=== PATIENT | male | born 1960 | race African-American/Black ===

== ENCOUNTER 2016-09-14 01:06 | Emergency (ER) | payer MEDICAID ==
[2016-09-14] VITALS (31 sets, daily range): BP systolic 0–104; BP diastolic 0–68
[~2016-09-14] VITALS: Ht 177.8 cm; Wt 68.0 kg
[2016-09-14 02:56] LABS: MEAN CORPUSCULAR HEMOGLOBIN 28.7 PG (27.0-31.0); MEAN CORPUSCULAR HGB CONC 28.8 G/DL (32.0-36.0); MEAN CORPUSCULAR VOLUME 100 FL (80-99); MEAN PLATELET VOLUME 9.1 FL (6.5-10.1); PLATELET COUNT 29 K/UL (150-450); RED CELL DISTRIBUTION WIDTH 16.3 % (11.6-14.8)
[2016-09-14 03:13] LABS: ALANINE AMINOTRANSFERASE 6 U/L (3-41); ALBUMIN/GLOBULIN RATIO 1.9 (1.0-2.7); ANION GAP 25 (5-15); ASPARTATE AMINO TRANSFERASE 20 U/L (5-40); CALCIUM 9.3 mg/dL (8.6-10.2); CARBON DIOXIDE 19 mEQ/L (20-30); CHLORIDE 97 mEQ/L (98-107); GLOMERULAR FILTRATION RATE > 60 mL/min (>60); HEMOLYSIS 5; LIPASE 25 U/L (< 60); POTASSIUM 5.1 mEQ/L (3.4-4.9); SODIUM 141 mEQ/L (135-145); TOTAL PROTEIN 5.8 g/dL (6.6-8.7)
[2016-09-14 03:18] LABS: TROPONIN I < 0.30 ng/mL (<=0.30)
[2016-09-14 03:35] LABS: WHITE BLOOD COUNT 94.6 K/UL (4.8-10.8)
[2016-09-14 04:05] LABS: BAND NEUTROPHILS % (MANUAL) 6 % (0-8); BASOPHILS % (MANUAL) 1 % (0-2); EOSINOPHILS % (MANUAL) 0 % (0-3); LYMPHOCYTES % (MANUAL) 86 % (20-45); NEUTROPHILS % (MANUAL) 3 % (45-75); PLATELET ESTIMATE DECREASED; TOTAL CELLS COUNTED 100
[2016-09-14 04:06] LABS: ANISOCYTOSIS 2+; OVALOCYTES 2+; PLATELET MORPHOLOGY NORMAL
[2016-09-14 04:07] LABS: POIKILOCYTOSIS 1+; TEAR DROP CELLS 1+
[2016-09-14 04:10] LABS: INR 1.1 (0.9-1.1); PROTHROMBIN TIME 11.7 SEC (9.30-11.50)
[2016-09-14] MEDS ORDERED: Morphine Sulfate 4mg/ml Inj IVP ONE ×2 (05:30→06:30)
[2016-09-14] MEDS ORDERED: fentaNYL 100 mcg/2 mL IV ONE (05:45)
[2016-09-14] MEDS ORDERED: Solu-MEDROL 125mg Inj ONE (06:26)
[2016-09-14] MEDS ORDERED: DiphenhydrAMINE 50mg/ml Inj ONE (06:26)
[2016-09-14] MEDS ORDERED: DiphenhydrAMINE 50mg/ml Inj IVP ONE (06:30)
[2016-09-14] MEDS ORDERED: Solu-MEDROL 125mg Inj IVP ONE (06:30)
--- NOTE | 2016-09-14 07:44 | Emergency Room Report ---
History of Present Illness General Chief Complaint: General Complaint Source: Patient Present Illness HPI 56-year-old male presents to ED for evaluation. Patient states that since last night he's been feeling weak, dizzy. States he had some abdominal pain and noted some diarrhea. Pain as cramping, sharp, 8/10. Nonradiating. No other aggravating relieving factors. Denies chest pain or shortness of breath. States that he was treated in the past for lymphoma but is currently not being treated. Currently does not have a PMD. No other aggravating relieving factors. Denies any other associated symptoms Allergies: Coded Allergies: No Known Allergies (Unverified , 09/14/16) Patient History Past Medical History: none Past Surgical History: none Pertinent Family History: none Social History: Denies: alcohol use, drug use, smoking Immunizations: UTD Reviewed Nursing Documentation: PMH: Agreed, PSxH: Agreed Review of Systems All Other Systems: negative except mentioned in HPI Physical Exam Vital Signs Date Time Temp Pulse Resp B/P Pulse Ox O2 Delivery O2 Flow Rate FiO2 09/14/16 01:08 98.1 104 18 104/68 100 Room Air Sp02 EP Interpretation: reviewed, normal General Appearance: no apparent distress, alert, GCS 15, non-toxic Head: normocephalic, atraumatic Eyes: bilateral eye PERRL, bilateral eye normal inspection ENT: hearing grossly normal, normal pharynx, no angioedema, normal voice Neck: full range of motion, supple/symm/no masses Respiratory: chest non-tender, lungs clear, normal breath sounds, speaking full sentences Cardiovascular #1: regular rate, rhythm, no edema Cardiovascular #2: 2+ carotid (R), 2+ carotid (L), 2+ radial (R), 2+ radial (L) , 2+ dorsalis pedis (R), 2+ dorsalis pedis (L) Gastrointestinal: normal bowel sounds, soft, no guarding, no rebound, distended Rectal: deferred Genitourinary: normal inspection, no CVA tenderness Musculoskeletal: back normal, gait/station normal, normal range of motion, non- tender Neurologic: alert, oriented x3, responsive, motor strength/tone normal, sensory intact, speech normal Psychiatric: judgement/insight normal, memory normal, mood/affect normal, no suicidal/homicidal ideation Reflexes: 3+ bicep (R), 3+ bicep (L), 3+ tricep (R), 3+ tricep (L), 3+ knee (R) , 3+ knee (L) Skin: normal color, no rash, warm/dry, well hydrated Lymphatic: no adenopathy Medical Decision Making Diagnostic Impression: Primary Impression: Leukocytosis Qualified Codes: D72.829 - Elevated white blood cell count, unspecified Additional Impressions: Anemia Qualified Codes: D64.9 - Anemia, unspecified Splenomegaly ER Course Hospital Course 56-year-old male presents ED complaining of dizziness and weakness, abdominal pain and distention. History of lymphoma Differential diagnoses include: dehydration, ACS/WI, SBO Clinical course Patient placed on stretcher. classroom monitor. After initial history and physical I ordered labs, IV fluids, EKG, CXR, CT Labs - marked leukocytosis, Hb/Hct 6.6/22.9. K 5.1. CXR unremarkable EKG - sinus tachy CT abdomen and pelvis - splenomgaly, marked shift in organs. no SBO PRBCs ordered. IV fluids ordered. Patient became hypotensive but responsive to IV fluids and blood Case discussed with Dr. Mckeon and he agreed to accept the patient to his service for further care and support I feel this is a highly complex case requiring extensive working including EKG/ Rhythm strip, Xray/CT/US, Blood/urine lab work, repeat exams while in ED, and administration of strong opiates/narcotics for pain control, admission to hospital or close patient follow up. Diagnosis - leukocytosis, anemia, splenomgaly Patient admitted to [facility] in serious condition Labs Test 09/14/16 02:50 White Blood Count 94.6 K/UL (4.8-10.8) Red Blood Count 2.30 M/UL (4.70-6.10) Hemoglobin 6.6 G/DL (14.2-18.0) Hematocrit 22.9 % (42.0-52.0) Mean Corpuscular Volume 100 FL (80-99) Mean Corpuscular Hemoglobin 28.7 PG (27.0-31.0) Mean Corpuscular Hemoglobin Concent 28.8 G/DL (32.0-36.0) Red Cell Distribution Width 16.3 % (11.6-14.8) Platelet Count 29 K/UL (150-450) Mean Platelet Volume 9.1 FL (6.5-10.1) Neutrophils (%) (Auto) % (45.0-75.0) Lymphocytes (%) (Auto) % (20.0-45.0) Monocytes (%) (Auto) % (1.0-10.0) Eosinophils (%) (Auto) % (0.0-3.0) Basophils (%) (Auto) % (0.0-2.0) Differential Total Cells Counted 100 Neutrophils % (Manual) 3 % (45-75) Lymphocytes % (Manual) 86 % (20-45) Monocytes % (Manual) 4 % (1-10) Eosinophils % (Manual) 0 % (0-3) Basophils % (Manual) 1 % (0-2) Band Neutrophils 6 % (0-8) Platelet Estimate Decreased Platelet Morphology Normal Poikilocytosis 1+ Anisocytosis 2+ Tear Drop Cells 1+ Ovalocytes 2+ Prothrombin Time 11.7 SEC (9.30-11.50) Prothromb Time International Ratio 1.1 (0.9-1.1) Activated Partial Thromboplast Time 28 SEC (23-33) Sodium Level 141 mEQ/L (135-145) Potassium Level 5.1 mEQ/L (3.4-4.9) Chloride Level 97 mEQ/L (98-107) Carbon Dioxide Level 19 mEQ/L (20-30) Anion Gap 25 (5-15) Blood Urea Nitrogen 20 mg/dL (7-23) Creatinine 1.0 mg/dL (0.7-1.2) Estimat Glomerular Filtration Rate > 60 mL/min (>60) Glucose Level 161 mg/dL (74-106) Calcium Level 9.3 mg/dL (8.6-10.2) Total Bilirubin 0.4 mg/dL (0.0-1.2) Aspartate Amino Transf (AST/SGOT) 20 U/L (5-40) Alanine Aminotransferase (ALT/SGPT) 6 U/L (3-41) Alkaline Phosphatase 93 U/L (40-129) Total Creatine Kinase 120 U/L (38-174) Troponin I < 0.30 ng/mL (<=0.30) Total Protein 5.8 g/dL (6.6-8.7) Albumin 3.8 g/dL (3.5-5.2) Globulin 2.0 g/dL Albumin/Globulin Ratio 1.9 (1.0-2.7) Lipase 25 U/L (< 60) EKG Diagnostic Results Rate: tachycardiac Rhythm: NSR ST Segments: no acute changes ASA given to the pt in ED: No Rhythm Strip Diag. Results EP Interpretation: yes Rhythm: NSR, no PVC's, no ectopy Chest X-Ray Diagnostic Results EP Interpretation: Yes Findings: no consolidation, no effusion, no pneumothorax, no acute cardiopulmonary disease Number of Views: 1 CT/MRI/US Diagnostic Results CT/MRI/US Diagnostic Results : Imaging Test Ordered: CT A/P Impression massive splenomegaly. mass effect with shift of stomach, bowel. + free fluid. no SBO Last Vital Signs Date Time Temp Pulse Resp B/P Pulse Ox O2 Delivery O2 Flow Rate FiO2 09/14/16 01:20 98.1 104 18 104/68 100 Room Air Status: improved Disposition: ADMITTED INPATIENT Condition: Serious Referrals: NOT CHOSEN [facility]/,REFERRING (PCP) MARIAH VALENTE M.D. Sep 14, 2016 07:44
[2016-09-14 07:58] LABS: CKMB 1.6 ng/mL (< 6.7)
[2016-09-14 08:08] LABS: APPEARANCE,URINE SLIGHTLY CLOUDY; KETONES,URINE NEGATIVE (NEGATIVE); LEUKOCYTE ESTERASE ,URINE NEGATIVE (NEGATIVE); NITRITE,URINE NEGATIVE (NEGATIVE); PH,URINE 6 (4.5-8.0); PROTEIN,URINE 3+ (NEGATIVE); UROBILINOGEN,URINE NORMAL MG/DL (0.0-1.0)
[2016-09-14 08:19] LABS: SQUAMOUS EPITHELIAL CELL,UR OCCASIONAL /LPF (NONE/OCC); WBC,URINE 0-2 /HPF (0 - 0)
[2016-09-14 08:20] LABS: AMORPHOUS SEDIMENT,UR FEW /LPF; BACTERIA,URINE OCCASIONAL /HPF
--- NOTE | 2016-09-14 09:11 | Emergency Room Report ---
History of Present Illness General Chief Complaint: General Complaint Source: Patient Present Illness Allergies: Coded Allergies: No Known Allergies (Unverified , 09/14/16) Physical Exam Vital Signs Date Time Temp Pulse Resp B/P Pulse Ox O2 Delivery O2 Flow Rate FiO2 09/14/16 01:08 98.1 104 18 104/68 100 Room Air Procedures Critical Care Time Critical Care Time 30 minutes of CC time for this patient See Code Blue note for interventions CC time also included review of labs, discussion with admitting hospitalist Dr Schuler CPR/Code Blue CPR/Code Blue Narrative Alerted by RN that patient became unresponsive at 845am Patient bradycardic 45, hypotensive 97/60 Apneic breathing? No palpable pulse CPR started by me immediately Pacer pads placed Patient received IV calcium After 1 round of CPR, palpable pulse, cardiac contractility on bedside sono at 846am Sinus tachycardia Bradycardic to 40s Received 0.4mg atropine with improvement I then emergently intubated patient without complication and connected to ventilator Reviewed labs - noted HyperK and low bicarb. gave 1 amp bicarb Informed admitting Dr Schuler at 909am Intubation Intubation : Consent: Emergent Intubation Method: orotracheal Tube Size (cm): 7.5 Breath Sounds after Intubation: equal Intubation Complications: no complications Post Intubation Xray: Yes Attempts: One Patient Tolerated: Well Complications: None Medical Decision Making Diagnostic Impression: Primary Impression: Leukocytosis Qualified Codes: D72.829 - Elevated white blood cell count, unspecified Additional Impressions: Anemia Qualified Codes: D64.9 - Anemia, unspecified Splenomegaly Cardiac arrest Acute respiratory failure Hyperkalemia Last Vital Signs Date Time Temp Pulse Resp B/P Pulse Ox O2 Delivery O2 Flow Rate FiO2 09/14/16 01:20 98.1 104 18 104/68 100 Room Air Disposition: ADMITTED INPATIENT Condition: Serious Referrals: NOT CHOSEN [facility]/,REFERRING (PCP) DEMETRIUS SILVEIRA M.D. Sep 14, 2016 09:10
[2016-09-14] MEDS ORDERED: Atropine Sulfate 0.4mg/ml inj IVP ONE (09:15)
[2016-09-14] MEDS ORDERED: Sodium Bicarbonate 8.4% 50ml Inj IV ONE ×2 (09:15→10:15)
[2016-09-14] MEDS ORDERED: EPINEPHrine 1mg/10ml carp IV ONE ×2 (09:15→11:16)
[2016-09-14] MEDS ORDERED: Vancomycin 1.5gm/D5W 300ml 300 ML IVPB ONE ×2 (09:30→11:45)
[2016-09-14] MEDS ORDERED: Levophed 4mg/4mL Inj IV ONE (09:51)
[2016-09-14] MEDS ORDERED: metroNIDAZOLE 500mg 100 ML IVPB SCH (10:00)
[2016-09-14] MEDS ORDERED: Sodium Bicarbonate 150 ML in D5W 1000ml 1,000 ML IV SCH (10:15)
--- NOTE | 2016-09-14 10:15 | Emergency Room Report ---
History of Present Illness General Chief Complaint: General Complaint Source: Patient Present Illness Allergies: Coded Allergies: No Known Allergies (Unverified , 09/14/16) Physical Exam Vital Signs Date Time Temp Pulse Resp B/P Pulse Ox O2 Delivery O2 Flow Rate FiO2 09/14/16 01:08 98.1 104 18 104/68 100 Room Air 09/14/16 07:35 3.0 09/14/16 09:42 100 Procedures Critical Care Time Critical Care Time 30 minutes of additional CC time Patient continually hypotensive despite IVF resuscitation Central line placed Levophed pressor started Labs reviewed: ABG indicates profound respiratory acidosis pH6.7, PO2 68 2 amps bicarb pushed Bicarb gtt started as pressors will be ineffectual if pH less than 7 Dr Schuler informed 1014am Central Line Central Line : Consent: Emergent Central Line Lumen: triple Maximal Sterile Barrier Tech: yes cap, yes mask, yes sterile gown, yes sterile gloves, yes large sterile sheet, yes hand hygiene, yes chlorhexidine prep No Max Barrier Tech Because: emergency insertion Central Line Postion: femoral (R) Complications: none Central Line Post Position: sutured, good blood return Attempts: One Patient Tolerated: Well Complications: None Intubation Intubation : Consent: Emergent Intubation Method: orotracheal Tube Size (cm): 7.5 Breath Sounds after Intubation: equal Intubation Complications: no complications Post Intubation Xray: Yes Attempts: One Patient Tolerated: Well Complications: None Progress CXR after intubation shows ET very elevated in trachea. Rechecked with glidescope, balloon seen at vocal cords Bougie passed thru tube into trachea ET tube advanced to 27cm Repeat CXR showed ET now in right mainstem Asked RT to back up to 25cm Medical Decision Making Diagnostic Impression: Primary Impression: Leukocytosis Qualified Codes: D72.829 - Elevated white blood cell count, unspecified Additional Impressions: Acute respiratory failure Qualified Codes: J96.01 - Acute respiratory failure with hypoxia Anemia Qualified Codes: D64.9 - Anemia, unspecified Cardiac arrest Splenomegaly Hyperkalemia Hypotension Qualified Codes: I95.9 - Hypotension, unspecified Last Vital Signs Date Time Temp Pulse Resp B/P Pulse Ox O2 Delivery O2 Flow Rate FiO2 09/14/16 09:42 142 14 69/43 Mechanical Ventilator 100 09/14/16 07:55 97 3.0 2/15/17 01:20 98.1 Disposition: ADMITTED INPATIENT Condition: Serious Referrals: NOT CHOSEN [facility]/,REFERRING (PCP) DEMETRIUS SILVEIRA M.D. Sep 14, 2016 10:15
[2016-09-14] MEDS ORDERED: DOPamine 400mg/250ml 250 ML IV SCH (10:30)
[2016-09-14] MEDS ORDERED: Morphine Sulfate 4mg/ml Inj IVP PRN (10:45)
[2016-09-14] MEDS ORDERED: Miralax 17gm pkt ORAL PRN (10:45)
[2016-09-14] MEDS ORDERED: LORazepam Inj 2mg/ml 1ml IV PRN (10:45)
[2016-09-14] MEDS ORDERED: DuoNeb 0.5-3(2.5)mg/3ml neb HHN PRN (10:45)
[2016-09-14] MEDS ORDERED: Cefepime HCl 2 GM in D5W 110 ML IVPB SCH (11:00)
--- NOTE | 2016-09-14 11:04 | Diagnostic Imaging Report ---
Indication: Status post intubation Technique: One view of the chest Comparison: 7 hours earlier Findings: Interim endotracheal intubation, endotracheal tube tip above the thoracic inlet. There is an overlying transcutaneous pacemaker paddle. Lungs and pleural spaces remain clear Impression: High position of the endotracheal tube. This was apparently recognized, as this has subsequently been corrected
--- NOTE | 2016-09-14 11:12 | Emergency Room Report ---
Physical Exam Vital Signs Date Time Temp Pulse Resp B/P Pulse Ox O2 Delivery O2 Flow Rate FiO2 09/14/16 01:08 98.1 104 18 104/68 100 Room Air 09/14/16 07:35 3.0 09/14/16 08:51 100 Medical Decision Making Diagnostic Impression: Primary Impression: Leukocytosis Qualified Codes: D72.829 - Elevated white blood cell count, unspecified Additional Impressions: Acute respiratory failure Qualified Codes: J96.01 - Acute respiratory failure with hypoxia Anemia Qualified Codes: D64.9 - Anemia, unspecified Cardiac arrest Splenomegaly Hypotension Qualified Codes: I95.9 - Hypotension, unspecified Hyperkalemia ER Course I was informed by admitting hospitalist Dr Yang at 11am that Dr Humphries called him that [facility] had missed a splenic rupture on their interpretation of CTAP from overnight. Dr Humphries sees a splenic rupture. This is likely why patient's BP continues to be low despite pressors Levophed and Dopamine Dr Yang stated he consulted GenSurg and VascSurg; pending call backs I ordered 2 Units PRBC 0 negative Family informed of this --- After further discussion with patient's sister with Dr Schuler,family agreed to make patient DNR, comfort care only. We discontinued pressors Patient pronounced at 1218pm. No cardiac contractility on bedside sono. No palpable pulse I pronounced patient with multiple family members bedside I made myself available to answer any questions they have Last Vital Signs Date Time Temp Pulse Resp B/P Pulse Ox O2 Delivery O2 Flow Rate FiO2 09/14/16 10:06 43/21 09/14/16 09:42 142 14 Mechanical Ventilator 100 09/14/16 08:10 95 3.0 09/14/16 01:20 98.1 Status: unchanged Disposition: ADMITTED INPATIENT Condition: Referrals: NOT CHOSEN [facility]/,REFERRING (PCP) DEMETRIUS SILVEIRA M.D. Sep 14, 2016 11:12
[2016-09-14] MEDS ORDERED: Sodium Bicarbonate 8.4% 50ml Carp ONE (11:16)
[2016-09-14] MEDS ORDERED: Atropine Sulfate 0.4mg/ml inj 20ML ONE (11:16)
[2016-09-14] MEDS ORDERED: Calcium Chloride 10% 10ml carpuject IVP ONE (11:16)
--- NOTE | 2016-09-14 11:38 | Diagnostic Imaging Report ---
Indication: TUBE PLCMT Technique: One view of the chest Comparison: 45 minutes earlier Findings: Interim slight retraction of endotracheal tube, tip now projecting approximately 3 cm above the prakash. The lungs and pleural spaces remain clear. Impression: Improved position of endotracheal tube
--- NOTE | 2016-09-14 11:44 | Diagnostic Imaging Report ---
Indication: SOB Technique: One view of the chest Comparison: none Findings: Lungs and pleural spaces are clear. Heart size is normal. Impression: No acute process This agrees with the preliminary interpretation provided by the emergency room physician
--- NOTE | 2016-09-14 12:53 | Pulmonolgy Critical Care Note ---
Critical Care - Asmt/Plan Problems: (1) moribund (2) Cardiac arrest (3) Acute respiratory failure (4) Splenomegaly (5) Hypotension (6) Hyperkalemia Respiratory: monitor respiratory rate, adjust FIO2 Cardiac: continue to monitor HR/BP Renal: F/U I&O, keep IV fluid Gastrointestinal: hold feedings Neurologic: PRN Morphine Notes Reviewed: storekeeper steward - Dr Mckeon,, other - ER physician. Discussed with: nurses, consultants Critical Care - Objective Last 24 Hour Vital Signs Date Time Temp Pulse Resp B/P Pulse Ox O2 Delivery O2 Flow Rate FiO2 09/14/16 11:25 63/49 09/14/16 10:25 94.8 09/14/16 10:06 100 09/14/16 10:06 43/21 09/14/16 10:03 89/55 09/14/16 10:00 58/31 09/14/16 09:42 142 14 69/43 Mechanical Ventilator 100 09/14/16 09:25 122 18 40/2 78 Mechanical Ventilator 100 09/14/16 09:15 128 18 38/22 81 Mechanical Ventilator 100 09/14/16 09:10 130 18 41/27 81 Mechanical Ventilator 100 09/14/16 09:05 133 18 37/27 81 Mechanical Ventilator 100 09/14/16 09:00 137 21 32/18 81 Mechanical Ventilator 100 09/14/16 08:51 100 09/14/16 08:50 119 18 92/36 90 Mechanical Ventilator 100 09/14/16 08:46 130 18 92/39 90 Mechanical Ventilator 100 09/14/16 08:40 79 16 94/63 100 Nasal Cannula 3.0 09/14/16 08:30 112 28 63/17 96 Nasal Cannula 3.0 09/14/16 08:15 141 28 99/59 95 Nasal Cannula 3.0 09/14/16 08:10 154 27 96/39 95 Nasal Cannula 3.0 09/14/16 07:55 158 28 87/44 97 Nasal Cannula 3.0 09/14/16 07:50 157 34 64/21 97 Nasal Cannula 3.0 09/14/16 07:35 154 30 90/50 97 Nasal Cannula 3.0 09/14/16 01:20 98.1 104 18 104/68 100 Room Air 09/14/16 01:08 98.1 104 18 104/68 100 Room Air Status: obtunded Condition: critical, grave HEENT: atraumatic Lungs: clear, chest wall tender Heart: HR/BP stable Abdomen: soft, non-tender, feeding tube Extremities: no C/C/E Critical Care - Subjective ROS Limited/Unobtainable: Yes ICU Day: 1 Interval Events: pt admitted to ER with ALOC, and abdominal pain and distention. He was intubated and started on pressors. He had a CT of abdomen showing a ruptured enlarged spleen. Pt was treated more than 10 years ago for lymphoma and his sister believes that he knew that the lymphoma came back but he decided that he doesn't want any treatment. He coded a few times in ER. I had a long conversation with sister who stated that she doesn't want any heroic measures. We will continue with comfort care. Patients SBP was around 60 with max levophed. IV Access: central EKG Rhythm: Sinus Rhythm FI02: 100 Vent Support Breath Rate: 18 Vent Support Mode: AC Vent Tidal Volume: 500 PEEP: 5.0 I&O: Intake and Output 09/13/16 09/14/16 19:00 07:00 Intake Total 1000 ml Balance 1000 ml Intake IV Total 1000 ml # Voids 1 ET Position: 23 Labs: Laboratory Tests Test 09/14/16 02:50 09/14/16 07:40 White Blood Count 94.6 K/UL (4.8-10.8) *H Red Blood Count 2.30 M/UL (4.70-6.10) L Hemoglobin 6.6 G/DL (14.2-18.0) *L Hematocrit 22.9 % (42.0-52.0) L Mean Corpuscular Volume 100 FL (80-99) H Mean Corpuscular Hemoglobin 28.7 PG (27.0-31.0) Mean Corpuscular Hemoglobin Concent 28.8 G/DL (32.0-36.0) L Red Cell Distribution Width 16.3 % (11.6-14.8) H Platelet Count 29 K/UL (150-450) L Mean Platelet Volume 9.1 FL (6.5-10.1) Neutrophils (%) (Auto) % (45.0-75.0) Lymphocytes (%) (Auto) % (20.0-45.0) Monocytes (%) (Auto) % (1.0-10.0) Eosinophils (%) (Auto) % (0.0-3.0) Basophils (%) (Auto) % (0.0-2.0) Differential Total Cells Counted 100 Neutrophils % (Manual) 3 % (45-75) L Lymphocytes % (Manual) 86 % (20-45) H Monocytes % (Manual) 4 % (1-10) Eosinophils % (Manual) 0 % (0-3) Basophils % (Manual) 1 % (0-2) Band Neutrophils 6 % (0-8) Platelet Estimate Decreased L Platelet Morphology Normal Poikilocytosis 1+ Anisocytosis 2+ Tear Drop Cells 1+ Ovalocytes 2+ Prothrombin Time 11.7 SEC (9.30-11.50) H Prothromb Time International Ratio 1.1 (0.9-1.1) Activated Partial Thromboplast Time 28 SEC (23-33) Sodium Level 141 mEQ/L (135-145) Potassium Level 5.1 mEQ/L (3.4-4.9) H Chloride Level 97 mEQ/L (98-107) L Carbon Dioxide Level 19 mEQ/L (20-30) L Anion Gap 25 (5-15) H Blood Urea Nitrogen 20 mg/dL (7-23) Creatinine 1.0 mg/dL (0.7-1.2) Estimat Glomerular Filtration Rate > 60 mL/min (>60) Glucose Level 161 mg/dL (74-106) H Calcium Level 9.3 mg/dL (8.6-10.2) Total Bilirubin 0.4 mg/dL (0.0-1.2) Aspartate Amino Transf (AST/SGOT) 20 U/L (5-40) Alanine Aminotransferase (ALT/SGPT) 6 U/L (3-41) Alkaline Phosphatase 93 U/L (40-129) Total Creatine Kinase 120 U/L (38-174) Creatine Kinase MB 1.6 ng/mL (< 6.7) Creatine Kinase MB Relative Index 1.3 Troponin I < 0.30 ng/mL (<=0.30) Total Protein 5.8 g/dL (6.6-8.7) L Albumin 3.8 g/dL (3.5-5.2) Globulin 2.0 g/dL Albumin/Globulin Ratio 1.9 (1.0-2.7) Lipase 25 U/L (< 60) Urine Color Yellow Urine Appearance Slightly cloudy Urine pH 6 (4.5-8.0) Urine Specific [place] 1.015 (1.005-1.035) Urine Protein 3+ (NEGATIVE) H Urine Glucose (UA) Negative (NEGATIVE) Urine Ketones Negative (NEGATIVE) Urine Occult Blood 2+ (NEGATIVE) H Urine Nitrite Negative (NEGATIVE) Urine Bilirubin Negative (NEGATIVE) Urine Urobilinogen Normal MG/DL (0.0-1.0) Urine Leukocyte Esterase Negative (NEGATIVE) Urine RBC 2-4 /HPF (0 - 0) H Urine WBC 0-2 /HPF (0 - 0) Urine Squamous Epithelial Cells Occasional /LPF Urine Amorphous Sediment Few /LPF (NONE) H Urine Bacteria Occasional /HPF (NONE) LISSETH PAYAN Sep 14, 2016 12:53
[2016-09-14] MEDS ORDERED: Phytonadione 10 MG in D5W 55 ML IVPB ONE (13:00)
--- NOTE | 2016-09-14 13:35 | Diagnostic Imaging Report ---
Clinical Indication: Abdominal distention and pain. History of Hodgkin's lymphoma Technique: No oral contrast utilized, per emergency room physician request IV administration nonionic contrast. Venous phase spiral acquisition obtained through the abdomen and pelvis. Multiplanar reconstructions were generated. Total dose length product 896 mGycm. CTDIvol(s) . mGy Comparison: Findings: There is massive splenomegaly, spleen measuring 32 cm in length by 24 cm orthogonal dimension. It is diffusely heterogeneously hypoattenuating, possibly necrotic. There is considerable ascites fluid. Amorphous heterogeneously dense material is seen within the pelvic ascites. This area measures 12 x 6.5 cm, and is suspicious for hemorrhage within the ascites. The distal esophagus is the stomach is partially compressed by the spleen, partially distended. The duodenum is unremarkable. Small bowel loops are nondilated. Is no evidence of diverticulosis or diverticulitis. What is probably a normal appendix is demonstrated. No free intraperitoneal air. The liver, gallbladder, bile ducts, pancreas, adrenals, kidneys are unremarkable. No mesenteric or retroperitoneal mass or adenopathy. The included lung bases are clear except for minimal atelectatic changes. There is a right iliac bone island. The bones are otherwise unremarkable. Impression: Massive splenomegaly Marked ascites. Incidental finding right iliac bone island The above findings agree with the preliminary interpretation right overnight by [facility] teleradiology service. There is evidence of hemorrhage within the ascites fluid in the pelvis. Etiology uncertain, but proximity to the lower border of the spleen raises possibility of splenic rupture as etiology. This finding was not reported by [facility]. [facility] was notified of the discrepancy via their website, and Dr. Hooper was notified at [address] scanner at [facility] is accredited by the [employer] and the scans are performed using protocols designed to limit radiation exposure to as low as reasonably achievable to attain images of sufficient resolution adequate for diagnostic evaluation.
--- NOTE | 2016-09-14 13:35 | Diagnostic Imaging Report ---
Indication: TUBE PLCMT Technique: One view of the chest Comparison: One half hour earlier Findings: Again demonstrated is an endotracheal tube, tip of which projects slightly higher, just above the prakash. The lungs and pleural spaces are clear. There is an overlying 2 transcutaneous pacemaker paddles. The heart size is normal. Impression: Improved position of endotracheal tube Other findings as noted
--- NOTE | 2016-09-14 13:35 | Diagnostic Imaging Report ---
Indication: Post endotracheal tube adjustment Technique: One view of the chest Comparison: 20 minutes earlier Findings: Interim advancement of previously high position of endotracheal tube, tip now projecting at level of the right mainstem bronchus orifice. Lungs and pleural spaces remain clear. Impression: Malposition of endotracheal tube. This was apparently recognized, as subsequent chest radiograph demonstrates corrected position
[2016-09-14 14:00] LABS: OTHERS PATHOLOGIST COMMENT
[2016-09-14 14:27] LABS: MEAN CORPUSCULAR HEMOGLOBIN 29.2 PG (27.0-31.0); MEAN CORPUSCULAR HGB CONC 29.4 G/DL (32.0-36.0); MEAN CORPUSCULAR VOLUME 99 FL (80-99); MEAN PLATELET VOLUME 6.1 FL (6.5-10.1); PLATELET COUNT 17 K/UL (150-450); RED BLOOD COUNT 1.34 M/UL (4.70-6.10); RED CELL DISTRIBUTION WIDTH 15.9 % (11.6-14.8)
[2016-09-14 14:31] LABS: WHITE BLOOD COUNT 64.6 K/UL (4.8-10.8)
[2016-09-14 14:53] LABS: BAND NEUTROPHILS % (MANUAL) 9 % (0-8); BLAST% 5 % (0-0); LYMPHOCYTES % (MANUAL) 75 % (20-45); NEUTROPHILS % (MANUAL) 10 % (45-75); TOTAL CELLS COUNTED 100
[2016-09-14 14:54] LABS: BASOPHILS % (MANUAL) 0 % (0-2); EOSINOPHILS % (MANUAL) 0 % (0-3); PLATELET ESTIMATE DECREASED; PLATELET MORPHOLOGY NORMAL; SMUDGE CELLS 1+
[2016-09-14 14:56] LABS: ANISOCYTOSIS 1+; POIKILOCYTOSIS 1+
[2016-09-14 14:57] LABS: HYPOCHROMASIA 1+
[2016-09-14 16:54] LABS: ABG PCO2 42.5 mmHg (35.0-45.0)
[2016-09-14 16:55] LABS: ABG BASE EXCESS -26.2
[2016-09-14] MEDS ORDERED: Heparin 5000 units/ml inj SUBQ SCH (21:00)
--- NOTE | 2016-09-14 23:19 | History and Physical Report ---
DATE OF ADMISSION: 09/14/2016 HISTORY OF PRESENT ILLNESS: The patient is admitted for leukocytosis, history of lymphoma, significant leukocytosis, significant anemia, and significant thrombocytopenia. The patient had a Code Blue in the ER, was intubated, he is on pressors. Dr. Cisse informed me on the preliminary report on the CAT scan that showed splenomegaly with mass effect on organs, but no obstruction, however, I was called by Dr. Humphries, radiologist around 9 a.m. on 09/15/2016 and was [address] Dr[address] Humphries that a splenic rupture with intraperitoneal hemorrhage was seen and was not reported on the preliminary CAT scan report on this patient. So, I immediately informed Dr. Mcneal as well as Dr. Kai Rios, vascular surgeon to see the patient immediately. The patient is going to ICU. The patient is intubated on the pressors, very poor prognosis. The patient apparently has a history of lymphoma, but was lost to follow-up. Apparently, the patient was not compliant with the followup of his lymphoma. This could be mostly due to lymphoma recurrence including the splenomegaly and rupture. I cannot obtain any history at this point. PAST MEDICAL HISTORY: Significant for lymphoma as well as anxiety. I cannot obtain any other history. PAST SURGICAL HISTORY: Unable to obtain. MEDICATIONS: Unable to obtain. ALLERGIES: Unable to obtain. FAMILY HISTORY: Unable to obtain. REVIEW OF SYSTEMS: Unable to obtain. PHYSICAL EXAMINATION: VITAL SIGNS: Pulse status code is 150, blood pressure is 96/39, temperature not recorded. HEENT: Pupils are barely reactive, very sluggish. CHEST: Bilateral rhonchi. CARDIOVASCULAR: Tachycardic. GASTROINTESTINAL: Positive bowel sounds. EXTREMITIES: No edema. NEUROLOGIC: Does not follow neurological exam, intubated, sedated. LABORATORY AND DIAGNOSTIC DATA: WBC was initially 94.6, hemoglobin 6.6, and platelets 29,000. Sodium 141, potassium 5.1, BUN 20, creatinine 1, and glucose 161. Otherwise, troponin is negative. ASSESSMENT AND PLAN: 1. Respiratory failure, intubated, rule out septic shock. 2. Splenic hemorrhage. 3. Splenomegaly, probably most likely due to lymphoma. I have asked Dr. Jacobo, Dr. Landaverde, Dr. Olmos, Dr. Powell, Dr. Mcneal, and Dr. Rios to see the patient for the above-mentioned diagnoses and treatment as well as Dr. Schuler is seeing the patient for critical care management and respiratory ventilatory management. Erum Mckeon M.D. DR: MAHAD JOB#: [id number] CC:
[2016-09-14] MEDS ORDERED: Amikacin 0 MG in NS 110 ML IV SCH (23:45)
[2016-09-14] MEDS ORDERED: Vancomycin 1 GM in D5W 275 ML IV SCH (23:45)
[2016-09-14] MEDS ORDERED: Ertapenem 1 GM in NS 55 ML IV SCH (23:45)
[2016-09-16 11:09] LABS: OTHERS PATHOLOGIST COMMENT
--- NOTE | 2016-09-16 11:50 | Cardiology Report ---
APPROVED REPORT EKG Measurement Heart [id number] Sinus tachycardia Otherwise normal ECG
== END 2016-09-14 15:10 | disposition expired ==
LOC: EDBD 01:06 → EMR 01:25 → UNDOADMIN 04:03 → 2E 04:03 → 4W 04:03 → EDBEDREQ 05:43 → 2E 09:53 → ICU 09:53 → EMR 15:10
DX: J96.00 Acute respiratory failure, unspecified whether with hypoxia or hypercapnia (principal); D73.5 Infarction of spleen; R16.1 Splenomegaly, not elsewhere classified; D72.829 Elevated white blood cell count, unspecified; D64.9 Anemia, unspecified; I46.9 Cardiac arrest, cause unspecified; R00.0 Tachycardia, unspecified; E87.5 Hyperkalemia; I95.9 Hypotension, unspecified; Z85.72 Personal history of non-Hodgkin lymphomas
CPT/HCPCS: 36415; 36600; 71010; 74177; 80053; 81003; 82550; 82553; 82803; 82962; 83690; 84484; 85007; 85025; 85610; 85730; 86850; 86880; 86900; 86901; 86920; 87040; 87081; 92950; 93005; 94002; 94664; 99285; J0171; J0461; J1200; J1265; J2270; J2405; J2930; J3010; J3430; J3490; J7070; P9016; Q9967